=== PATIENT | female | born 1980 | race Two or more races ===

== ENCOUNTER → 2021-07-21 | Day surgery (SDC) | payer OTHER ==
[~2021-07-21] VITALS: Ht 170.2 cm; Wt 117.9 kg
[~2021-07-21] MED LIST: DULO60CA PO; GLYCOPYRROLATE 0.2 MG/ML 1ML VIAL ONE; HYDROmorphone HCL 2 MG/ML VL IV PRN; KETAMINE HCL 10 ML ONE; LORA-622 PO; MIDAZOLAM HCL 2MG/2ML 2ml VIAL (1mg/ml) ONE; ONDANSETRON HCL 4 MG/2 ML VIAL IV PRN; SULF500T8 PO; ceFAZolin 1GM/50ML 100 ML IV ONE; fentaNYL CITRATE 100 MCG/2 ML VL ONE
[2021-07-21 10:00] VITALS: BP 147/93
== END | disposition home or self-care (01) ==
LOC: SUR 06:23
PROVIDERS: ATTEND Urology
DX: N20.0 Calculus of kidney (principal); M06.9 Rheumatoid arthritis, unspecified; Z90.89 Acquired absence of other organs; Z20.822 Contact with and (suspected) exposure to COVID-19
CPT/HCPCS: 50590; 81025; J0690; J2250; J3010; U0003

== ENCOUNTER 2021-08-22 15:54 | Inpatient (IN) | payer OTHER ==
[~2021-08-22] VITALS: Ht 170.2 cm; Wt 115.3 kg
[~2021-08-22 15:54] MED LIST changes: -GLYCOPYRROLATE 0.2 MG/ML 1ML VIAL ONE; -HYDROmorphone HCL 2 MG/ML VL IV PRN; -KETAMINE HCL 10 ML ONE; -MIDAZOLAM HCL 2MG/2ML 2ml VIAL (1mg/ml) ONE; -ONDANSETRON HCL 4 MG/2 ML VIAL IV PRN; -ceFAZolin 1GM/50ML 100 ML IV ONE; -fentaNYL CITRATE 100 MCG/2 ML VL ONE
[2021-08-22 16:28] LABS: Basophils # (auto) 0 10 ^3/uL (0-0.2); Basophils % (auto) 0.3 % (0.0-2.0); Eosinophils # (auto) 0 10 ^3/uL (0-0.8); Eosinophils % (auto) 0.3 % (0.0-7.0); Hematocrit 37.6 % (36.0-46.0); Hemoglobin 13.1 g/dL (12.2-16.2); Lymphocytes # (auto) 0.7 10 ^3/uL (0.4-5.4); Lymphocytes % (auto) 5.8 % (10.0-50.0); Mean Corpuscular Hemoglobin 29.7 pg (28.0-32.0); Mean Corpuscular Hgb Conc. 34.8 g/dL (32.0-36.0); Mean Corpuscular Volume 85.1 fL (80.0-100.0); Monocytes % (auto) 8.2 % (0.0-12.0); Neutrophils # (auto) 10.1 10 ^3/uL (1.6-8.6); Neutrophils % (auto) 85.4 % (37.0-80.0); Red Blood Cells 4.42 10^6/uL (4.0-5.20); Red Cell Distribution Width 14.2 % (11.8-14.3); White Blood Cell 11.8 10^3/uL (4.4-10.8)
[2021-08-22 16:42] LABS: Albumin 3.5 g/dL (3.4-5.0); BUN/Creatinine Ratio 12.5; Calcium 8.2 mg/dL (8.5-10.1); Potassium 3.6 mmol/L (3.5-5.1)
[2021-08-22 16:45] LABS: Bilirubin, Total 0.5 mg/dL (0.2-1.0)
[2021-08-22 16:50] LABS: Urine Bacteria FEW /hpf (None Seen); Urine Blood 1+ /uL (Negative); Urine Mucus FEW (None Seen); Urine Specific Gravity 1.018 (1.001-1.035); Urine WBC 69 /hpf (0 - 5)
[2021-08-22] MEDS ORDERED: SODIUM CHLORIDE 0.9% 1,000 ML IV ONE (17:30)
[2021-08-22] MEDS ORDERED: cefTRIAXone 1GM/50ML D5W 50 ML IV ONE (17:30)
[2021-08-22] MEDS ORDERED: ACETAMINOPHEN 500 MG TAB PO ONE (17:30)
[2021-08-22] MEDS ORDERED: KETOROLAC TROMETH 30 MG/ML 1ML VIAL IV ONE (18:00)
[2021-08-22] MEDS ORDERED: LACTATED RINGER'S 1,000 ML IV ONE (19:00)
[2021-08-22] MEDS ORDERED: CEPH-322 PO (19:37)
[2021-08-22] MEDS ORDERED: MORPHINE SULFATE INJECTION 2 MG/ML SYRG IV ONE ×2 (21:00→21:15)
[2021-08-22] MEDS ORDERED: MORPHINE SULFATE 4 MG/ML SYR/VIAL ONE (21:07)
[2021-08-22] MEDS ORDERED: ONDANSETRON HCL 4 MG/2 ML VIAL IV PRN (23:30)
[2021-08-22] MEDS ORDERED: MORPHINE SULFATE 4 MG/ML SYR/VIAL IV PRN (23:30)
[2021-08-22] MEDS: ACETAMINOPHEN 325 MG TAB PO PRN (23:56)
[2021-08-23] MEDS: SODIUM CHLORIDE 0.9% 1,000 ML IV SCH ×4 (00:54→09:31)
[2021-08-23] MEDS ORDERED: MORPHINE SULFATE INJECTION 2 MG/ML SYRG ONE (01:13)
[2021-08-23] MEDS: ACETAMINOPHEN 325 MG TAB PO PRN ×3 (05:55→21:09)
[2021-08-23 06:59] VITALS: BP 116/74
[2021-08-23 08:45] VITALS: BP 131/76
[2021-08-23] MEDS ORDERED: cefTRIAXone 1GM/50ML D5W 50 ML IV SCH (09:00)
[2021-08-23] MEDS: ENOXAPARIN SOD 40 MG/0.4 ML SYRINGE SC SCH (09:31)
[2021-08-23 09:32] LABS: Basophils # (auto) 0 10 ^3/uL (0-0.2); Basophils % (auto) 0.3 % (0.0-2.0); Eosinophils # (auto) 0 10 ^3/uL (0-0.8); Eosinophils % (auto) 0.1 % (0.0-7.0); Hemoglobin 11.8 g/dL (12.2-16.2); Lymphocytes # (auto) 0.9 10 ^3/uL (0.4-5.4); Lymphocytes % (auto) 6.7 % (10.0-50.0); Mean Corpuscular Hemoglobin 29.6 pg (28.0-32.0); Mean Corpuscular Hgb Conc. 34.6 g/dL (32.0-36.0); Mean Corpuscular Volume 85.4 fL (80.0-100.0); Monocytes # (auto) 0.9 10 ^3/uL (0-1.3); Neutrophils # (auto) 10.9 10 ^3/uL (1.6-8.6); Neutrophils % (auto) 85.9 % (37.0-80.0); Red Blood Cells 3.98 10^6/uL (4.0-5.20); White Blood Cell 12.7 10^3/uL (4.4-10.8)
[2021-08-23 09:45] LABS: Albumin 2.8 g/dL (3.4-5.0); Potassium 3.6 mmol/L (3.5-5.1)
[2021-08-23 09:48] LABS: Bilirubin, Total 0.4 mg/dL (0.2-1.0)
[2021-08-23 10:57] LABS: BUN/Creatinine Ratio 7.9
[2021-08-23] MEDS: KETOROLAC TROMETH 30 MG/ML 1ML VIAL IV PRN ×2 (11:46→20:36)
[2021-08-23 12:18] VITALS: BP 132/99
[2021-08-23 16:29] VITALS: BP 125/69
[2021-08-23] MEDS ORDERED: ERTAPENEM SOD INJ 1 GM in SODIUM CHL 0.9% 50 ML IV ONE (16:30)
[2021-08-23 20:00] VITALS: BP 142/79
[2021-08-23 22:00] VITALS: BP 126/58
[2021-08-24 05:00] VITALS: BP 126/75
[2021-08-24 06:58] LABS: Basophils # (auto) 0 10 ^3/uL (0-0.2); Basophils % (auto) 0.2 % (0.0-2.0); Eosinophils # (auto) 0.1 10 ^3/uL (0-0.8); Eosinophils % (auto) 0.6 % (0.0-7.0); Hematocrit 34.8 % (36.0-46.0); Hemoglobin 12.1 g/dL (12.2-16.2); Lymphocytes # (auto) 1.1 10 ^3/uL (0.4-5.4); Lymphocytes % (auto) 11.3 % (10.0-50.0); Mean Corpuscular Hgb Conc. 34.7 g/dL (32.0-36.0); Mean Corpuscular Volume 86.3 fL (80.0-100.0); Monocytes # (auto) 1.1 10 ^3/uL (0-1.3); Monocytes % (auto) 10.8 % (0.0-12.0); Neutrophils # (auto) 7.6 10 ^3/uL (1.6-8.6); Neutrophils % (auto) 77.1 % (37.0-80.0); Red Blood Cells 4.03 10^6/uL (4.0-5.20); Red Cell Distribution Width 14.1 % (11.8-14.3); White Blood Cell 9.8 10^3/uL (4.4-10.8)
[2021-08-24 07:16] LABS: Potassium 4.3 mmol/L (3.5-5.1)
[2021-08-24 07:25] LABS: BUN/Creatinine Ratio 11.7; Calcium 8.6 mg/dL (8.5-10.1)
[2021-08-24] MEDS: SODIUM CHLORIDE 0.9% 1,000 ML IV SCH (08:50)
[2021-08-24] MEDS ORDERED: ERTAPENEM SOD INJ 1 GM in SODIUM CHL 0.9% 50 ML IV SCH (10:00)
[2021-08-24] MEDS: ENOXAPARIN SOD 40 MG/0.4 ML SYRINGE SC SCH (10:16)
[2021-08-24] MEDS ORDERED: CIPR500T4 PO (14:36)
== END 2021-08-24 16:30 | disposition home or self-care (01) | DRG 690 ==
LOC: ER 15:54 → OVERFLOW 23:25 → WEST WING 08-23 02:04
PROVIDERS: ADMIT Internal Medicine; ATTEND Internal Medicine
DX: N13.6 Pyonephrosis (principal); D86.9 Sarcoidosis, unspecified; Z20.822 Contact with and (suspected) exposure to COVID-19; E66.9 Obesity, unspecified; M06.9 Rheumatoid arthritis, unspecified; Z80.52 Family history of malignant neoplasm of bladder; Z87.442 Personal history of urinary calculi; Z68.39 Body mass index [BMI] 39.0-39.9, adult
CPT/HCPCS: 36415; 74176; 80048; 80053; 81001; 81025; 85025; 87040; 87086; 87426; 96361; 96365; 96375; 96376; G0378; J0696; J1335; J1885; J2405

== ENCOUNTER 2022-03-04 20:14 | Emergency (ER) | payer OTHER ==
[~2022-03-04] VITALS: Ht 170.2 cm; Wt 109.0 kg
[~2022-03-04 20:14] MED LIST changes: +CIPR500T4 PO; -LORA-622 PO; -SULF500T8 PO
[2022-03-04 22:43] LABS: Urine Bacteria NONE SEEN /hpf (None Seen); Urine Blood 3+ /uL (Negative); Urine Budding Yeast FEW /hpf (None Seen); Urine Mucus FEW (None Seen); Urine WBC 1491 /hpf (0 - 5); Urine WBC Clumps PRESENT /hpf (None Seen)
[2022-03-05] MEDS ORDERED: ONDANSETRON HCL 4 MG/2 ML VIAL IV ONE (01:45)
[2022-03-05] MEDS ORDERED: KETOROLAC TROMETH 30 MG/ML 1ML VIAL IV ONE (01:45)
[2022-03-05] MEDS ORDERED: SODIUM CHLORIDE 0.9% 1,000 ML IV ONE (01:45)
[2022-03-05 03:16] LABS: Basophils # (auto) 0 10 ^3/uL (0-0.2); Basophils % (auto) 0.2 % (0.0-2.0); Eosinophils # (auto) 0 10 ^3/uL (0-0.8); Eosinophils % (auto) 0.3 % (0.0-7.0); Hematocrit 37.3 % (36.0-46.0); Hemoglobin 12.4 g/dL (12.2-16.2); Lymphocytes # (auto) 1.5 10 ^3/uL (0.4-5.4); Lymphocytes % (auto) 12.2 % (10.0-50.0); Mean Corpuscular Hemoglobin 30.2 pg (28.0-32.0); Mean Corpuscular Hgb Conc. 33.4 g/dL (32.0-36.0); Mean Corpuscular Volume 90.5 fL (80.0-100.0); Monocytes # (auto) 1.3 10 ^3/uL (0-1.3); Neutrophils # (auto) 9.1 10 ^3/uL (1.6-8.6); Neutrophils % (auto) 76.3 % (37.0-80.0); Red Blood Cells 4.12 10^6/uL (4.0-5.20); Red Cell Distribution Width 14.1 % (11.8-14.3); White Blood Cell 11.9 10^3/uL (4.4-10.8)
[2022-03-05 03:37] LABS: Albumin 3.4 g/dL (3.4-5.0); Calcium 8.5 mg/dL (8.5-10.1); Potassium 3.1 mmol/L (3.5-5.1)
[2022-03-05 03:39] LABS: BUN/Creatinine Ratio 17.2
[2022-03-05 03:41] LABS: Bilirubin, Total 0.7 mg/dL (0.2-1.0); Total Protein 7.1 g/dL (6.4-8.2)
[2022-03-05] MEDS ORDERED: BACDST PO (04:10)
[2022-03-05] MEDS ORDERED: POTASSIUM EFFERVESENT TAB 25 MEQ PO ONE (04:15)
[2022-03-05] MEDS ORDERED: MORPHINE SULFATE INJ 2 MG/ml SYRG IV ONE (04:15)
[2022-03-05] MEDS ORDERED: SULFAMETHOX W/TRIMETH(800/160MG) DS TAB PO ONE (04:15)
[2022-03-05] MEDS ORDERED: MORPHINE SULFATE 4 MG/ML SYR/VIAL ONE (04:17)
[2022-03-05 05:05] VITALS: BP 103/60
== END 2022-03-05 05:33 | disposition home or self-care (01) ==
LOC: ER 20:14
DX: M54.50 Low back pain, unspecified (principal); N39.0 Urinary tract infection, site not specified; N20.0 Calculus of kidney; Z79.1 Long term (current) use of non-steroidal anti-inflammatories (NSAID); Z79.899 Other long term (current) drug therapy
CPT/HCPCS: 36415; 74176; 80053; 81001; 84702; 85025; 96361; 96374; 96375; 99285; J1885; J2270; J2405; J7030